=== PATIENT | male | born 1985 | race Hispanic/Latino ===

== ENCOUNTER 2023-06-03 02:50 | Emergency (ER) | payer SELFPAY ==
[2023-06-03] MEDS ORDERED: Oxymetazoline HCl 0.05% (30 ML BOT) ONE (03:22)
[2023-06-03 04:42] LABS: #Monocytes 0.9 thou/uL (0.11-0.59); #Neutrophils 11.5 thou/uL (1.40-6.50); %Basophils 0.3 % (0.0-1.0); %Eosinophils 0.3 % (0.0-10.0); %Lymphocytes 10.2 % (21.0-51.0); %Monocytes 6.7 % (0.0-10.0); %Neutrophils 82.1 % (42.0-75.0); Hematocrit 45.4 % (42.0-52.0); Hemoglobin 16.2 g/dL (14.0-18.0); Mean Corpuscular HGB CONC 35.7 g/dL (32.0-36.0); Mean Corpuscular Hemoglobin 30.7 pg (27.0-31.0); Mean Corpuscular Volume 86.1 fl (78.0-98.0); Mean Platelet Volume 9.5 fL (7.4-10.4); Platelet Count 191 10x3/uL (130-400); RBC Distribution Width 12.1 % (11.5-14.5); Red Blood Cell (RBC) Count 5.27 mill/uL (4.70-6.10)
[2023-06-03 04:55] LABS: INR-International Normal Ratio 1.1; PTT 29.8 sec (22.9-36.1); Prothrombin Time 14.5 sec (12.0-14.7)
[2023-06-03 05:06] LABS: ALT (SGPT) 60 U/L (8-55); AST (SGOT) 35 U/L (5-34); Albumin 4.5 g/dL (3.5-5.0); Alkaline Phosphatase 80 U/L (40-110); Anion Gap 16 mmol/L (10-20); BUN (Urea Nitrogen) 14 mg/dL (8.9-20.6); Calc. Creatinine Clearance 0 mL/min (70-130); Calcium 9.4 mg/dL (7.8-10.44); Carbon Dioxide 24 mmol/L (22-29); Chloride 102 mmol/L (98-107); Estimated GFR 115; Globulin 3.2 g/dL (2.4-3.5); Glucose 125 mg/dL (70-105); Protein, Total 7.7 g/dL (6.0-8.3); Sodium 138 mmol/L (136-145)
== END 2023-06-03 05:15 | disposition home or self-care (01) ==
LOC: ERS 02:50
DX: R04.0 Epistaxis (principal); R03.0 Elevated blood-pressure reading, without diagnosis of hypertension
CPT/HCPCS: 36415; 80053; 85025; 85610; 85730; 99283